=== PATIENT | male | born 1960 | race Caucasian/White ===

== ENCOUNTER 2018-11-26 13:41 | Emergency (ER) | payer BC ==
[~2018-11-26] VITALS: Ht 177.8 cm; Wt 136.4 kg
[~2018-11-26 13:41] MED LIST: ANCEF IJ; ASPIRIN 81M81 MG/TA2 PO; CEPHALEXIN500 M1 PO; CLINDAMYCIN HC300 MG PO; CLINDAMYCIN150 MG PO; COUMADIN 5MG5 MG/TAB PO; CRESTOR 10MG10 MG PO; DOXYCYCLINE 10100 MG PO; LEVAQUIN 750MG750 M1 PO; LOVENOX 6060 MG/0.6 SQ; LOVENOX 8080 MG/0.8 SQ; METFORMIN1000 MG PO; NO HOME MEDICATIONS; PRAVASTATIN SOD10 MG PO; ROCEPHIN2 GM IM; TYLENOL 500MG500 MG PO; ZESTRIL 10MG10 MG PO; ZOCOR10 MG PO
[2018-11-26 13:58] VITALS: TEMP 98.4
[2018-11-26] MEDS ORDERED: FLEXERIL 1010 MG/TAB PO (14:17)
[2018-11-26 14:31] LABS: BASO # 0.1 (0.0-0.2); BASO % 1.3 % (0.0-2.0); EOS # 0.1 (0.0-0.7); EOS % 1.1 % (0-4.0); GRAN # 2.6 (1.4-6.5); HEMATOCRIT 42.4 % (42.0-52.0); HEMOGLOBIN 14.1 g/dl (13.5-18.0); LYMPH # 1.4 (1.2-3.4); LYMPH % 29.9 % (20.0-51.0); MEAN CELL VOLUME 89 fl (80.0-100.0); MEAN CORPUSCULAR HEMOGLOBIN 30 pg (27.0-31.0); MEAN CORPUSCULAR HGB CONC 33 g/dl (33.0-37.0); MEAN PLATELET VOLUME 9.5 fl (7.4-10.4); MONO # 0.4 (0.1-0.6); MONO % 9.5 % (1.7-9.3); PLATELET COUNT 201 K/mm3 (130-400); RED BLOOD COUNT 4.76 M/mm3 (4.20-5.60); REDCELL DISTRIBUTION WIDTH-CV 13.2 % (11.5-14.5)
[2018-11-26 14:34] LABS: ALBUMIN 4.3 gm/dL (3.5-5.0); BILIRUBIN,TOTAL 0.7 mg/dL (0.0-1.0); CALCIUM 9.6 mg/dL (8.4-10.2); CREATININE, serum 0.69 (0.66-1.25); POTASSIUM 4.1 mmol/L (3.4-5.0); TOTAL PROTEIN 7.7 gm/dL (6.4-8.2)
[2018-11-26 14:58] LABS: INR 2.7 (0.8-3.0); PROTHROMBIN TIME 30.3 SECONDS (9.7-12.8)
[2018-11-26 15:05] LABS: D-DIMER < 200.00 ng/mLDDu (200-230)
[2018-11-26 15:20] VITALS: BP 168/90; PULSE 75
== END 2018-11-26 15:21 | disposition home or self-care (01) ==
LOC: COL.ER 13:41
PROVIDERS: Emergency Medicine
DX: M79.604 Pain in right leg (principal); E11.9 Type 2 diabetes mellitus without complications; I10 Essential (primary) hypertension; E78.5 Hyperlipidemia, unspecified; Z79.82 Long term (current) use of aspirin; Z79.01 Long term (current) use of anticoagulants; Z79.84 Long term (current) use of oral hypoglycemic drugs; F17.210 Nicotine dependence, cigarettes, uncomplicated

== ENCOUNTER 2019-05-22 12:59 | Outpatient (RCR) | payer OTHER ==
[~2019-05-22 12:59] MED LIST changes: +FLEXERIL 1010 MG/TAB PO
== END 2019-05-28 10:54 | disposition home or self-care (01) ==
LOC: WSOH 12:59
DX: M17.11 Unilateral primary osteoarthritis, right knee (principal); I10 Essential (primary) hypertension; E11.9 Type 2 diabetes mellitus without complications; E78.00 Pure hypercholesterolemia, unspecified; Y99.0 Civilian activity done for income or pay; F17.210 Nicotine dependence, cigarettes, uncomplicated

== ENCOUNTER 2020-09-09 16:17 | Inpatient (IN) | payer BC ==
[~2020-09-09] VITALS: Ht 175.3 cm; Wt 136.4 kg
[~2020-09-09 16:17] MED LIST changes: +GLUCOPHAGE1000 MG PO; -METFORMIN1000 MG PO
[2020-09-09 17:02] LABS: BASO # 0.1 (0.0-0.2); BASO % 0.9 % (0.0-2.0); EOS # 0.1 (0.0-0.7); EOS % 1.6 % (0-4.0); GRAN # 4.2 (1.4-6.5); GRAN % 64.8 % (42.2-75.2); HEMATOCRIT 42.4 % (42.0-52.0); HEMOGLOBIN 14.7 g/dl (13.5-18.0); LYMPH # 1.4 (1.2-3.4); LYMPH % 21.7 % (20.0-51.0); MEAN CELL VOLUME 87 fl (80.0-100.0); MEAN CORPUSCULAR HEMOGLOBIN 30 pg (27.0-31.0); MEAN CORPUSCULAR HGB CONC 35 g/dl (33.0-37.0); MEAN PLATELET VOLUME 9.7 fl (7.4-10.4); MONO # 0.7 (0.1-0.6); MONO % 10.7 % (1.7-9.3); PLATELET COUNT 201 K/mm3 (130-400); RED BLOOD COUNT 4.89 M/mm3 (4.20-5.60); REDCELL DISTRIBUTION WIDTH-CV 12.6 % (11.5-14.5)
[2020-09-09 17:13] LABS: INR 1.7 (0.8-3.0)
[2020-09-09 17:14] LABS: ALANINE AMINOTRANSFERASE 25 U/L (4-49); ALBUMIN 4.5 gm/dL (3.5-5.0); ALKALINE PHOSPHATASE 86 U/L (50-136); ANION GAP 9 mmol/L (7-16); AST,SGOT 24 U/L (15-37); BILIRUBIN,TOTAL 0.9 mg/dL (0.0-1.0); BLOOD UREA NITROGEN 13 mg/dL (9-20); CALCIUM 9.7 mg/dL (8.4-10.2); CARBON DIOXIDE 24 mmol/L (22-30); CHLORIDE 104 mmol/L (98-107); CREATININE, serum 0.63 (0.66-1.25); GLUCOSE 101 mg/dL (74-106); SODIUM 137 mmol/L (137-145); TOTAL PROTEIN 7.8 gm/dL (6.4-8.2)
[2020-09-09 17:26] LABS: TROPONIN-I < 0.012 ng/mL (0.000-0.035)
[2020-09-09 22:04] VITALS: BP 132/68; PULSE 94
--- NOTE | 2020-09-09 22:30 | NUR ---
Patient up from ER. Alert and oriented, oriented to room and isolation precautions. Heparin infusing per orders to left forarm. Patient denies pain at this time. Patient up independently in room with steady gait. Denies further needs at this time.
--- NOTE | 2020-09-09 23:15 | NUR ---
Secondary IV line initiated for antibiotics to left wrist, x1 attempt. No further needs at this time.
[2020-09-09 23:27] VITALS: TEMP 98.8
--- NOTE | 2020-09-10 01:20 | NUR ---
HEP XA at 0.92, stoped heparin at this time per protocol
--- NOTE | 2020-09-10 02:30 | NUR ---
Heparin rate changed to 21 ml/hr per protocol. Verified with Sarah GUIDO. Recheck at 0820
[2020-09-10 05:09] VITALS: BP 118/64; PULSE 77; TEMP 98.3
--- NOTE | 2020-09-10 06:04 | NUR ---
Patient doing well throughout the night. Sleeps between disturbances. Denies pain at this time. Heparin infusing per orders. Patient denies needs at this time. States he would like to be able to go home today. Will report off to day shift.
--- NOTE | 2020-09-10 07:00 | NUR ---
Report received from Ramses Higgins. pT in bed resting, denies needs, will continue to monitor.
[2020-09-10 07:19] LABS: BASO # 0.1 (0.0-0.2); BASO % 0.9 % (0.0-2.0); EOS # 0.1 (0.0-0.7); EOS % 2.2 % (0-4.0); GRAN # 2.9 (1.4-6.5); GRAN % 54.3 % (42.2-75.2); HEMATOCRIT 39.7 % (42.0-52.0); HEMOGLOBIN 13.2 g/dl (13.5-18.0); LYMPH # 1.5 (1.2-3.4); LYMPH % 28.5 % (20.0-51.0); MEAN CELL VOLUME 89 fl (80.0-100.0); MEAN CORPUSCULAR HEMOGLOBIN 30 pg (27.0-31.0); MEAN CORPUSCULAR HGB CONC 33 g/dl (33.0-37.0); MEAN PLATELET VOLUME 9.8 fl (7.4-10.4); MONO # 0.7 (0.1-0.6); MONO % 13.7 % (1.7-9.3); PLATELET COUNT 183 K/mm3 (130-400); RED BLOOD COUNT 4.46 M/mm3 (4.20-5.60); REDCELL DISTRIBUTION WIDTH-CV 12.6 % (11.5-14.5)
[2020-09-10 07:22] LABS: INR 1.6 (0.8-3.0); PROTHROMBIN TIME 18.1 SECONDS (9.7-12.8)
[2020-09-10 07:24] LABS: CALCIUM 8.8 mg/dL (8.4-10.2); CREATININE, serum 0.65 (0.66-1.25)
[2020-09-10 07:37] LABS: TROPONIN-I 0.013 ng/mL (0.000-0.035)
[2020-09-10 08:19] VITALS: BP 117/55; PULSE 72; TEMP 98
--- NOTE | 2020-09-10 10:37 | NUR ---
Assessment charted. Pt states he is feeling fine, does not feel short of breath today, is hoping to go home. Heparin gtt to L A/C at 21 ml/hr. INT to LW. Denies pain. Up ad jonny in room. Will continue to monitor.
[2020-09-10 11:31] VITALS: BP 129/65; PULSE 72; TEMP 98.2
[2020-09-10] MEDS ORDERED: COUMADIN 1010 MG/TAB PO (12:12)
--- NOTE | 2020-09-10 12:15 | NUR ---
Warfarin Initial Dosing Pharmacy Note Ordering Provider: Maicol Mcallister MD Indication: VTE/PE Treatment LABS: INR 1.6 Recommendation: Will increase regimen to Warfarin 10 mg po qHS. Bridging with heparin drip. Pharmacy will continue to monitor daily INR levels. Home Regimen: Warfarin 10 mg po TuFr@2100 and 9 mg po [id number]@2100
--- NOTE | 2020-09-10 13:14 | NUR ---
Chart review complete - no evidence of MRSA active infection or colonization since 2007. Nares screen this visit negative for MRSA. Will discontinue contact precautions this visit and subsequent visits unless positive MRSA labs reoccur. Dawn Tejada RN
--- NOTE | 2020-09-10 13:14 | NUR ---
The patient is PUI. Child Support Investigator contacted the patient via room phone to complete intake. The patient lives independently in [place] with his , Liz. The patient denies DME use. The patient's PCP is Dr. Gomez and patient receives medications from [facility] pharmacy with no difficulties. The patient does not have advanced directives and was not interested in DPOA-HC form. The patient plans to return home at discharge. PT/OT ordered.
[2020-09-10 16:39] VITALS: BP 133/61; PULSE 77; TEMP 98.6
--- NOTE | 2020-09-10 17:51 | NUR ---
Pt resting in chair at side of bed. Denies pain. Had an okay day, discussed need to stay for coumadin to get to therapeutic levels and will remain here on heparin gtt until that is acheived. Pt verbalized understanding. Denies needs, will give bedside shift report to nightshift nurse who will resume care.
[2020-09-10 19:16] VITALS: BP 130/58; PULSE 79; TEMP 97.9
--- NOTE | 2020-09-10 20:30 | NUR ---
Patient assessed at this time. Alert and oriented x 4, and able to make needs known. Denies having pain and discomfort at this time. Peripheral INTs to left forearm and wrist. Denies SOB and dyspnea. On room air. LS CTA in upper lobes, diminished in lower. Respirations even and unlabored. HRR. Telemetry in place: normal sinus. Capillary refill less than 3 seconds. Non-tenting skin turgor. BSAx4. Abdomen soft and non-tender. 2+ edema BLE. Scaling/flaking to BLE. Voices no questions, needs, or concerns at this time. Resting in recliner with call light within reach.
[2020-09-10 23:30] VITALS: BP 128/60; PULSE 74; TEMP 98
[2020-09-11 04:50] VITALS: BP 130/50; PULSE 78; TEMP 98.2
[2020-09-11 05:48] LABS: BASO # 0.1 (0.0-0.2); BASO % 0.9 % (0.0-2.0); EOS # 0.1 (0.0-0.7); EOS % 2.5 % (0-4.0); GRAN # 2.9 (1.4-6.5); GRAN % 55.4 % (42.2-75.2); HEMOGLOBIN 13.3 g/dl (13.5-18.0); LYMPH # 1.5 (1.2-3.4); LYMPH % 28.5 % (20.0-51.0); MEAN CELL VOLUME 89 fl (80.0-100.0); MEAN CORPUSCULAR HEMOGLOBIN 30 pg (27.0-31.0); MEAN CORPUSCULAR HGB CONC 33 g/dl (33.0-37.0); MEAN PLATELET VOLUME 9.8 fl (7.4-10.4); MONO # 0.7 (0.1-0.6); MONO % 12.3 % (1.7-9.3); PLATELET COUNT 208 K/mm3 (130-400); RED BLOOD COUNT 4.49 M/mm3 (4.20-5.60); REDCELL DISTRIBUTION WIDTH-CV 12.7 % (11.5-14.5)
--- NOTE | 2020-09-11 05:54 | NUR ---
Patient has been resting with call light within reach. Continues on Heparin drip per orders. Patient's Covid PCR test came back negative. IV to left wrist had redness/pain to site. D/C'd INT. Had notified AIMRAH Luis earlier, and patient was not wanting to have another IV placed if he didn't need to. Order to change from IV Doxycyline to PO. Patient has voiced no further questions, needs, or concerns this shift.
[2020-09-11 05:59] LABS: CALCIUM 9.1 mg/dL (8.4-10.2); CREATININE, serum 0.65 (0.66-1.25); POTASSIUM 4.1 mmol/L (3.4-5.0)
[2020-09-11 06:05] LABS: INR 1.4 (0.8-3.0)
--- NOTE | 2020-09-11 07:00 | NUR ---
Report received from LATA Swenson. PT in bed resting with eyes closed, will continue to monitor.
[2020-09-11 07:51] VITALS: BP 134/75; PULSE 73; TEMP 97.8
--- NOTE | 2020-09-11 09:08 | NUR ---
Assessment charted. PT doing well, really would like to discharge today. Disucssed lab results. Hep XA to LA/C. Denies pain. Will continue to monitor.
[2020-09-11] MEDS ORDERED: COUMADIN 1010 MG/TAB PO (10:35)
[2020-09-11] MEDS ORDERED: LOVENOX150 MG/ML SQ (10:38)
--- NOTE | 2020-09-11 12:08 | NUR ---
Dishcarge teaching completed at thsi time. Pt received education on lovenox injections, able to demonstrate by giving his own shot well. Confirmed script with pharmacy on file. INT dc't to LA/C tip intact. PT left with all belongings. Discharge meds reviewed, and packet. Escorted out by medical staff, criteria met.
== END 2020-09-11 12:10 | disposition home or self-care (01) | DRG 176 ==
LOC: COL.ER 16:17 → MEDICAL 20:15 → PEDS 20:15
PROVIDERS: Physician Assistant; ADMIT Student in an Organized Health Care Education/Training Program
DX: I26.99 Other pulmonary embolism without acute cor pulmonale (principal); I82.402 Acute embolism and thrombosis of unspecified deep veins of left lower extremity; I82.432 Acute embolism and thrombosis of left popliteal vein; E78.5 Hyperlipidemia, unspecified; I10 Essential (primary) hypertension; F17.210 Nicotine dependence, cigarettes, uncomplicated; Z20.822 Contact with and (suspected) exposure to COVID-19; E66.9 Obesity, unspecified; E11.9 Type 2 diabetes mellitus without complications; R07.89 Other chest pain
CPT/HCPCS: 99223-AI; 99233-AI; 99239; J0696; J1644; J1650; Q9967

== ENCOUNTER 2020-09-13 09:11 | Emergency (ER) | payer BC ==
[~2020-09-13] VITALS: Ht 175.3 cm; Wt 136.4 kg
[~2020-09-13 09:11] MED LIST changes: +COUMADIN 1010 MG/TAB PO; +LOVENOX150 MG/ML SQ
[2020-09-13 10:37] LABS: BASO % 0.6 % (0.0-2.0); EOS # 0.1 (0.0-0.7); EOS % 1.5 % (0-4.0); GRAN # 5.5 (1.4-6.5); GRAN % 75.3 % (42.2-75.2); HEMATOCRIT 41.4 % (42.0-52.0); HEMOGLOBIN 13.9 g/dl (13.5-18.0); LYMPH # 0.9 (1.2-3.4); LYMPH % 12.6 % (20.0-51.0); MEAN CELL VOLUME 89 fl (80.0-100.0); MEAN CORPUSCULAR HEMOGLOBIN 30 pg (27.0-31.0); MEAN CORPUSCULAR HGB CONC 34 g/dl (33.0-37.0); MEAN PLATELET VOLUME 9.7 fl (7.4-10.4); MONO # 0.7 (0.1-0.6); MONO % 9.4 % (1.7-9.3); PLATELET COUNT 239 K/mm3 (130-400); RED BLOOD COUNT 4.68 M/mm3 (4.20-5.60); REDCELL DISTRIBUTION WIDTH-CV 12.6 % (11.5-14.5)
[2020-09-13 10:39] LABS: ALANINE AMINOTRANSFERASE 30 U/L (4-49); ALBUMIN 4.2 gm/dL (3.5-5.0); ALKALINE PHOSPHATASE 81 U/L (50-136); ANION GAP 8 mmol/L (7-16); AST,SGOT 29 U/L (15-37); BILIRUBIN,TOTAL 0.6 mg/dL (0.0-1.0); BLOOD UREA NITROGEN 17 mg/dL (9-20); CALCIUM 9.7 mg/dL (8.4-10.2); CARBON DIOXIDE 24 mmol/L (22-30); CHLORIDE 106 mmol/L (98-107); CREATININE, serum 0.66 (0.66-1.25); GLUCOSE 129 mg/dL (74-106); POTASSIUM 4.1 mmol/L (3.4-5.0); SODIUM 137 mmol/L (137-145); TOTAL PROTEIN 7.5 gm/dL (6.4-8.2)
[2020-09-13 10:43] LABS: INR 2.7 (0.8-3.0)
[2020-09-13 10:59] LABS: TROPONIN-I < 0.012 ng/mL (0.000-0.035)
[2020-09-13] MEDS ORDERED: NORCO 325 MG-51 TAB PO (11:27)
[2020-09-13 12:05] VITALS: BP 142/72; PULSE 78; TEMP 97.9
== END 2020-09-13 12:00 | disposition home or self-care (01) ==
LOC: COL.ER 09:11
PROVIDERS: Physician Assistant
DX: R07.81 Pleurodynia (principal); I26.99 Other pulmonary embolism without acute cor pulmonale; I10 Essential (primary) hypertension; E78.5 Hyperlipidemia, unspecified; F17.210 Nicotine dependence, cigarettes, uncomplicated; Z88.0 Allergy status to penicillin; Z88.1 Allergy status to other antibiotic agents; Z88.8 Allergy status to other drugs, medicaments and biological substances; Z79.01 Long term (current) use of anticoagulants; Z79.84 Long term (current) use of oral hypoglycemic drugs; Z79.82 Long term (current) use of aspirin
CPT/HCPCS: J3010

== ENCOUNTER → 2022-08-30 | Outpatient (CLI) | payer BC ==
[~2022-08-30] MED LIST changes: +NORCO 325 MG-51 TAB PO
== END ==
LOC: MHCPAIN 14:52
DX: M54.16 Radiculopathy, lumbar region (principal); M21.372 Foot drop, left foot
CPT/HCPCS: G0463

== ENCOUNTER → 2023-05-01 | Outpatient (CLI) | payer BC | LOC: MHCPAIN 13:18 | DX: M54.16 Radiculopathy, lumbar region (principal); M21.372 Foot drop, left foot | CPT/HCPCS: G0463 ==

== ENCOUNTER 2023-07-20 13:01 | Emergency (ER) | payer BC ==
[~2023-07-20] VITALS: Ht 177.8 cm; Wt 138.6 kg
[2023-07-20 13:03] VITALS: TEMP 98
[2023-07-20 16:29] VITALS: BP 158/68; PULSE 85
== END 2023-07-20 16:34 | disposition home or self-care (01) ==
LOC: COL.ER 13:01
DX: M25.561 Pain in right knee (principal); G89.29 Other chronic pain; Z86.718 Personal history of other venous thrombosis and embolism; Z86.711 Personal history of pulmonary embolism; Z79.01 Long term (current) use of anticoagulants; X50.1XXA Overexertion from prolonged static or awkward postures, initial encounter

== ENCOUNTER → 2024-04-17 | Outpatient (CLI) | payer BC ==
[~2024-04-17] MED LIST changes: +Iohexol 300 - 10 ML VIAL ONE; +Lidocaine PF 2% (20 MG/ML) 2 ML VIAL ONE
== END ==
LOC: MHCPAIN 14:03
DX: M54.16 Radiculopathy, lumbar region (principal); M25.552 Pain in left hip
CPT/HCPCS: J1100; Q9967